=== PATIENT | female | born 1940 | race Caucasian/White ===

== ENCOUNTER 2017-12-12 14:17 | Emergency (ER) | payer OTHER ==
[2017-12-12 14:35] VITALS: BP 132/74; PULSE 83; TEMP 97.8; BMI 26.5
--- NOTE | 2017-12-12 14:36 | PDOC ---
Rapid Medical Evaluation Chief Complaint: Chest Pain Time Seen by Provider: 12/12/17 14:35 Medical Evaluation: Allergies Allergy/AdvReac Type Severity Reaction Status Date / Time nitrofurantoin Allergy Intermediate Rash Verified 09/21/13 14:36 macrocrystalline [From Macrodantin] Penicillins Allergy Intermediate Rash Verified 09/21/13 14:36 diazepam [From Valium] AdvReac Intermediate CAUSES PT Verified 09/21/13 14:36 TO HAVE ANXIETY 12/12/17 14:51 The patient presents with a chief complaint of: Right sided chest pressure/R sided abdominal pressure starting this afternoon I have performed a brief in-person evaluation of this patient; Pertinent physical exam findings: ambulatory, in no respiratory distress, abdomen soft, RUQ/RLQ tenderness. No CVA tenderness I have ordered the following: CBC, CMP, PT/INR, Trop, EKG, CXR, Lipase, UA, UC The patient will proceed to the ED for further evaluation.
--- NOTE | 2017-12-12 14:54 | PDOC ---
History of Present Illness - General Chief Complaint: Chest Pain Stated Complaint: chest/abd/back pain Time Seen by Provider: 12/12/17 14:35 - History of Present Illness Initial Comments: 12/12/17 16:15 The patient is a 76 year old female with a history of HLD, Breast CA who presents for evaluation of abdominal pain. The patient reports onset of RUQ abdominal pressure with radiation into her back prompting her presentation to the ED for evaluation. She states that she has a history of gallstones and is concerned about her gallbladder. She denies similar symptoms in the past and otherwise denies fevers, chills, SOB, chest pain, nausea, vomiting, abdominal pain, or changes with urination or bowel movements. 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) CVA: No COPD: No CHF: No DVT: No Dementia: No Diabetes: No GI Disorders: No Disorders: No HTN: No Hypercholesterolemia: Yes Liver Disease: No Seizures: No Thyroid Disease: Yes (NODULES) - Surgical History Abdominal Surgery: No Appendectomy: No Cardiac Surgery: No Cholecystectomy: No Lung Surgery: No Neurologic Surgery: No Orthopedic Surgery: No - Suicide/Smoking/Psychosocial Hx Smoking Status: No Smoking History: Never smoked Have you smoked in the past 12 months: No Number of Cigarettes Smoked Daily: 0 Information on smoking cessation initiated: No Hx Alcohol Use: No Drug/Substance Use Hx: No Substance Use Type: None Hx Substance Use Treatment: No Review of Systems - Review of Systems Comments:: 12/12/17 16:26 Constitutional: No fevers, chills, fatigue, malaise HEENT: No Rhinorrhea, nasal congestion, visual changes Cardiovascular: No chest pain, syncope, palpitations, lightheadedness Respiratory: No Cough, SOB, Hemoptysis, Gastrointestinal: Abdominal Pressure. No Nausea, Vomiting, Constipation, Diarrhea, Melena Genitourinary: No Dysuria, Frequency, Urgency, Hesitancy, Hematuria, Flank pain Musculoskeletal: No Myalgia, arthralgia Skin: No rashes, itching, bruising, pallor Neurologic: No Headache, Dizziness, Numbness, Weakness, or Tingling Psychiatric: No Hallucinations. No SI or HI *Physical Exam - Vital Signs Last Vital Signs Temp Pulse Resp BP Pulse Ox 97.8 F 83 18 132/74 98 12/12/17 14:33 12/12/17 14:33 12/12/17 14:33 12/12/17 14:33 12/12/17 14:33 - Physical Exam Comments: 12/12/17 16:26 General Appearance: Nourished. No Apparent Distress HEENT: EOMI, SHANNON. No Pharyngeal Erythema, Tonsillar Exudate, Tonsillar Erythema Neck: No Cervical Lymphadenopathy Respiratory/Chest: Lungs Clear, Normal Breath Sounds. No Crackles, Rales, Rhonchi, Wheezing Cardiovascular: Regular Rhythm, Regular Rate. No Murmur, Gallops, Rubs Gastrointestinal/Abdominal: Normal Bowel Sounds, Soft. Mild discomfort with palpation in the RUQ. Negative Mccrary's sign. No Guarding, Rebound, Musculoskeletal: No CVA Tenderness Extremity: Normal Capillary Refill Integumentary: Normal Color, Dry, Warm Neurologic: Fully Oriented, Alert, Normal Mood/Affect, Normal Response, Heart Score/ECG Review #1 ECG reviewed & interpreted by me at: 14:53 General ECG Interpretation: Sinus Rhythm, Normal Rate, Normal Intervals, No acute ischemic changes ED Treatment Course - LABORATORY CBC & Chemistry Diagram: 12/12/17 15:30 12/12/17 15:30 Medical Decision Making - Medical Decision Making 12/12/17 16:27 The patient is a 76 year old female with a history of HLD, Breast CA who presents for evaluation of abdominal pain. Differential includes but is not limited to: Cholecystitis, Cholelithiasis, Gastritis, Infectious, metabolic derangement. Given the patient's history, it is likely her symptoms are due to cholelithiasis although the patient does not demonstrate signs of infectious etiologies. However we will obtain a cbc, cmp, troponin, gallbladder US, chest plain film, ekg to evaluate for possible etiologies. We will continue to monitor and reassess in the meantime. 12/12/17 20:57 CBC, cmp, troponin are unremarkable. Gallbladder US demonstrates gallstones without evidence of cholecystitis as read by our radiologist. CT abdomen pelvis did not demonstrate any acute intra-abdominal pathology as read by our radiologist. We are comfortable discharging the patient home at this time with GI and primary care provider follow up. We discussed the results, plan, and return precautions with the patient and her family who voiced understanding and are agreeable with the plan. *DC/Admit/Observation/Transfer Diagnosis at time of Disposition: Abdominal pain Qualifiers: Abdominal location: unspecified location Qualified Code(s): R10.9 - Unspecified abdominal pain - Discharge Dispostion Disposition: HOME Condition at time of disposition: Good Admit: No - Referrals Referrals: Terrance Roth [Primary Care Provider] - Kristina Tony MD [Staff Physician] - - Patient Instructions Printed Discharge Instructions: DI for Abdominal Pain-Adult Additional Instructions: Please return to the ER if you experience concerning or worsening symptoms including worsening pain, fevers, or vomiting. Your lab results were normal here in the ER. Your gallbladder ultrasound and ct scan were normal. Your symptoms may be due to constipation or musculoskeletal spasm. It is important that you call to schedule a follow up appointment with your primary care provider and our GI specialist (Dr. Tony) within 2-3 days to discuss your ER visit and further management of your symptoms. - Post Discharge Activity
[2017-12-12 15:41] LABS: BASO % 0.4 % (0-2.0); EOS % 0.2 % (0-4.5); HEMATOCRIT 41.6 % (32.4-45.2); HEMOGLOBIN 14.2 GM/dL (10.7-15.3); LYMPH % 6.7 % (8-40); MCH 30.4 pg (25.7-33.7); MCHC 34.2 g/dl (32.0-36.0); MEAN CELL VOLUME 88.8 fl (80-96); MEAN PLT VOLUME 8.7 fl (7.5-11.1); MONO % 6.6 % (3.8-10.2); NEUT % 86.1 % (42.8-82.8); PLATELET COUNT 280 K/MM3 (134-434); RBC 4.68 M/mm3 (3.60-5.2); RDW 13.1 % (11.6-15.6); WHITE BLOOD COUNT 11.6 K/mm3 (4.0-10.0)
--- NOTE | 2017-12-12 15:50 | PDOC ---
Attending Attestation - Resident Resident Name: MicaelaCrow - ED Attending Attestation I have performed the following: I have examined & evaluated the patient, The case was reviewed & discussed with the resident, I agree w/resident's findings & plan, Exceptions are as noted - HPI HPI: 12/12/17 15:36 76-year-old female with history of gallstones and kidney stones presents with right upper quadrant/right flank pain for 3 hours. last meal was about 5 hours ago, no associated shortness of breath, nausea or vomiting, fevers or chills, dysuria or hematuria or frequency. No history of postprandial abdominal pain, the gallstones were incidentally diagnosed. This is not typical of her renal colic, there is no exertional or pleuritic complement and she has no cardiopulmonary complaints. - Physicial Exam PE: 12/12/17 15:38 Well-appearing, speaking full sentences Heart is regular with 2/6 systolic ejection murmur, lungs are clear Abdomen is soft/nondistended. Tender with some guarding in the right upper quadrant, no CVA tenderness. - Medical Decision Making 12/12/17 15:39 Patient seen and evaluated with the resident. I agree with the overall evaluation, assessment, and management with the following summary of visit: 76-year-old female presents with acute onset of right upper quadrant pain about 3 hours ago, exam localizes to the right upper quadrant. Presentation could be most consistent with biliary colic, rule out obstruction/infection. Low suspicion for ACS or cardiopulmonary process, also not consistent with process. Check labs, urinalysis EKG, chest x-ray Declines pain medication at this time Right upper quadrant ultrasound Reassess 12/12/17 16:33 wbc 11, chem and UA pending. U/S shows cholelithiasis without cholecystitis. Will proceed with CTAP to r/o diveriticulitis/colitis. Patient was signed out to the oncoming ED physician to follow-up the results, reassess the patient, and dispo accordingly. Heart Score/ECG Review #1 ECG reviewed & interpreted by me at: 14:41 General ECG Interpretation: Sinus Rhythm, Normal Rate (83), Normal Intervals ( qtc 432), No acute ischemic changes
[2017-12-12 15:56] LABS: URINE APPEARANCE CLEAR; URINE BILIRUBIN NEGATIVE (NEGATIVE); URINE BLOOD NEGATIVE (NEGATIVE); URINE COLOR YELLOW; URINE GLUCOSE (UA) NEGATIVE (NEGATIVE); URINE KETONE NEGATIVE (NEGATIVE); URINE NITRITE NEGATIVE (NEGATIVE); URINE PROTEIN NEGATIVE (NEGATIVE)
[2017-12-12 16:08] LABS: INR 0.96 (0.82-1.09); PROTHROMBIN TIME (PATIENT) 10.9 SEC (9.98-11.88)
--- NOTE | 2017-12-12 16:25 | EKG ---
Test Reason : Blood Pressure : / mmHG Vent. Rate : 083 BPM Atrial Rate : 083 BPM P-R Int : 146 ms QRS Dur : 080 ms QT Int : 368 ms P-R-T Axes : 056 034 050 degrees QTc Int : 432 ms NORMAL SINUS RHYTHM LOW VOLTAGE QRS NONSPECIFIC ST AND T WAVE ABNORMALITY ABNORMAL ECG WHEN COMPARED WITH ECG OF 24-DEC-2012 21:00, NONSPECIFIC T WAVE ABNORMALITY NOW EVIDENT IN ANTEROLATERAL LEADS Confirmed by Alvaro Osborne ([id number]) on 12/12/2017 4:25:24 PM Referred By: Confirmed By:Alvaro Osborne
[2017-12-12 16:38] LABS: URINE LEUK ESTERASE 1+ (NEGATIVE)
[2017-12-12 16:57] LABS: ALBUMIN 3.7 g/dl (3.4-5.0); ALK PHOS 98 U/L (45-117); ANION GAP 11 (8-16); BILIRUBIN,TOTAL 1.3 mg/dL (0.2-1.0); BLOOD UREA NITROGEN 16 mg/dL (7-18); CALCIUM 8.9 mg/dL (8.5-10.1); CHLORIDE 106 mmol/L (98-107); CO2 27 mmol/L (21-32); CREATININE 0.6 mg/dL (0.55-1.02); GLUCOSE,RANDOM 116 mg/dL (74-106); POTASSIUM 3.8 mmol/L (3.5-5.1); SGOT/AST 133 U/L (15-37); SGPT/ALT 61 U/L (12-78); SODIUM 144 mmol/L (136-145)
[2017-12-12 17:11] LABS: CALCIUM OXALATE CRYSTALS MODERATE /hpf (NONE SEEN); EPI CELLS RARE /HPF (FEW); URINE BACTERIA RARE /hpf (NONE SEEN); URINE HYALINE CAST 1 /lpf; URINE MUCUS RARE
[2017-12-12 17:15] LABS: LIPASE 331 U/L (73-393)
[2017-12-12] MEDS ORDERED: ONDANSETRON 4 MG/2 ML VIAL IVPUSH ONE (17:58)
[2017-12-12] MEDS ORDERED: ONDANSETRON 4 MG/2 ML VIAL ONE (18:04)
== END 2017-12-12 21:15 | disposition home or self-care (01) ==
LOC: JER 14:17
PROC: 3E033GC Introduction of Other Therapeutic Substance into Peripheral Vein, Percutaneous Approach (ICD-10-PCS; principal; 2017-12-12)
DX: R10.9 Unspecified abdominal pain (principal); E78.00 Pure hypercholesterolemia, unspecified; E04.1 Nontoxic single thyroid nodule; Z85.3 Personal history of malignant neoplasm of breast; Z85.828 Personal history of other malignant neoplasm of skin; Z95.2 Presence of prosthetic heart valve
CPT/HCPCS: 36415; 71046-TC-FY; 74176-TC; 76705-TC; 80053; 81003; 81015; 82550; 83690; 84484; 85025; 85610; 87086; 93005; 93010; 99282-25